=== PATIENT | female | born 1975 | race Caucasian/White ===

== ENCOUNTER → 2020-02-21 15:33 | Outpatient (CLI) | payer OTHER, SELFPAY ==
--- NOTE | 2020-02-21 15:52 | RAD_ITS ---
STUDY: X-RAY - RIGHT ELBOW REASON FOR EXAM: Female, 44 years old. Pain after lifting something heavy on February 08. TECHNIQUE: 3 view(s) of the elbow. COMPARISON: None. FINDINGS: Normal visualized humerus, radius and ulna. Normal radiocapitellar and ulnotrochlear articulations. There is no acute fracture, dislocation or destructive osseous pathology. The soft tissue structures are unremarkable. RAD/Elbow min 3 Views IMPRESSION: No fracture or dislocation Electronically Signed: Ascencion Valdez DO at 17:00 EDT Tel [phone], Service support ,
== END ==
PROVIDERS: Referring Provider Physician Assistant; Visit Provider Physician Assistant
DX: S59.901A Unspecified injury of right elbow, initial encounter (principal)
CPT/HCPCS: 73080